=== PATIENT | male | born 1935 | race Hispanic/Latino ===

== ENCOUNTER 2017-01-07 10:06 | Emergency (ER) | payer MEDICARE, BC ==
[2017-01-07 10:06] VITALS: BMI 28.1
[2017-01-07 11:25] VITALS: BP 98/52; PULSE 75; RESP 18; TEMP 97.8
[2017-01-07] MEDS ORDERED: oxyCODONE 10 mg Immediate Release Tab PO STA (11:42)
[2017-01-07] MEDS ORDERED: oxyCODONE 10 mg ER Tab (oxyCONTIN) PO ONE (12:04)
--- NOTE | 2017-01-07 12:20 | ED PDOC ---
HPI: Back Time Seen by Provider: 01/07/17 11:22 Chief Complaint (Nursing): Back Pain Chief Complaint (Provider): Back Pain History Per: Patient History/Exam Limitations: no limitations Onset/Duration Of Symptoms: Days Current Symptoms Are (Timing): Still Present Quality Of Discomfort: "Pain" Severity: Mild Previous Symptoms: Back Pain Associated Symptoms: None Additional Complaint(s): Patient is a 81 year old male who presents to ED for evaluation of back pain. Patient notes chronic back pain, taking Oxycodone every 6 hours for pain but ran out of pain medication yesterday. States he has an appointment with pain management tomorrow. Denies any acute symptoms at this time Past Medical History Reviewed: Historical Data, Nursing Documentation, Vital Signs Vital Signs: Last Vital Signs Temp 97.8 F 01/07/17 11:21 Pulse 75 01/07/17 11:21 Resp 18 01/07/17 11:21 BP 98/52 L 01/07/17 11:21 Pulse Ox 96 01/07/17 11:21 - Medical History PMH: Anxiety, Benign Prostatic Hyperplasia, CAD, Depression, Fractures ( Compression. H/O Kyphoplasty), Kidney Stones (also bph), Peripheral Edema ( Lymphedema), Sleep Apnea (?Says sleep study was normal) Denies: Arthritis, CHF, COPD, HIV, HTN, Hypercholesterolemia, Hypothyroidism , Chronic Kidney Disease, Rheumatoid Arthritis - Surgical History Surgical History: Back Surgery, Coronary Stent - Family History Family History: States: Hypertension - Living Arrangements Living Arrangements: With Family - Immunization History Hx Tetanus Toxoid Vaccination: Yes - Home Medications Home Medications: Ambulatory Orders Medication Instructions Recorded ALPRAZolam [Xanax] 0.5 mg PO DAILY 05/10/16 Clopidogrel [Plavix] 75 mg PO DAILY 05/10/16 Desloratadine 5 mg PO DAILY 05/10/16 Finasteride [Proscar] 5 mg PO BID 05/10/16 Furosemide [Lasix] 20 mg PO BID 05/10/16 Metoprolol Tartrate [Lopressor] 25 mg PO DAILY 05/10/16 Mirtazapine [Remeron] 1 - 2 tab PO QWK 05/10/16 [id number] Ethyl Esters 1 GM 1 gm PO BID 05/10/16 [Lovaza] Ramipril [Altace] 2.5 mg PO DAILY 05/10/16 Tamsulosin [Flomax] 0.4 mg PO BID 05/10/16 Triamterene [Dyrenium] 20 mg PO DAILY 05/10/16 oxyCODONE [oxyCODONE Immediate 15 mg PO Q6 05/10/16 Release Tab] oxyCODONE [oxyCONTIN] 10 mg PO Q12 05/10/16 oxyCODONE [oxyCODONE Immediate 15 mg PO Q6 PRN #4 tab 01/07/17 Release Tab] - Allergies Allergies/Adverse Reactions: Allergies Allergy/AdvReac Type Severity Reaction Status Date / Time itraconazole Allergy RASH Verified 05/10/16 11:51 Review of Systems Constitutional: Negative for: Weakness Cardiovascular: Negative for: Chest Pain Respiratory: Negative for: Shortness of Breath Musculoskeletal: Positive for: Back Pain. Negative for: Neck Pain, Leg Pain Skin: Negative for: Rash Neurological: Negative for: Weakness, Numbness Physical Exam - Reviewed Nursing Documentation Reviewed: Yes Vital Signs Reviewed: Yes - Physical Exam Appears: Positive for: Non-toxic, No Acute Distress Skin: Positive for: Normal Color, Warm Eye Exam: Positive for: Normal appearance Neck: Positive for: Normal Cardiovascular/Chest: Positive for: Regular Rate, Rhythm. Negative for: Murmur Respiratory: Positive for: Normal Breath Sounds. Negative for: Wheezing Back: Positive for: Normal Inspection. Negative for: Vertebral Tenderness Extremity: Positive for: Normal ROM. Negative for: Pedal Edema Neurologic/Psych: Positive for: Alert, Oriented. Negative for: Motor/Sensory Deficits - ECG O2 Sat by Pulse Oximetry: 96 (RA) Pulse Ox Interpretation: Normal Medical Decision Making Medical Decision Making: Time: 1140 Initial impression: Chronic back pain Initial plan: -- Percocet PO Scribe Attestation: Documented by Ameena Valentin acting as a scribe for Theodore Hall MD MD Scribe Attestation: All medical record entries made by the Scribe were at my direction and personally dictated by me. I have reviewed the chart and agree that the record accurately reflects my personal performance of the history, physical exam, medical decision making, and the department course for this patient. I have also personally directed, reviewed, and agree with the discharge instructions and disposition. Disposition - Clinical Impression Clinical Impression: Chronic back pain - Patient ED Disposition Is Patient to be Admitted: No Doctor Will See Patient In The: Office Counseled Patient/Family Regarding: Studies Performed, Diagnosis, Need For Followup - Disposition Referrals: Jeffrey Troncoso MD [Staff Provider] - Disposition: Routine/Home Disposition Time: 12:19 Condition: GOOD Additional Instructions: Return for worsening. Follow up with Dr Troncoso tomorrow. Prescriptions: oxyCODONE [oxyCODONE Immediate Release Tab] 15 mg PO Q6 PRN #4 tab PRN Reason: Pain, Severe (8-10) Instructions: Chronic Back Pain (ED)
[2017-01-07 12:30] VITALS: O2SAT 96
== END 2017-01-07 12:27 | disposition home or self-care (01) ==
LOC: H.ER 10:06
DX: M54.9 Dorsalgia, unspecified (principal); G89.29 Other chronic pain